=== PATIENT | female | born 1950 | race Caucasian/White ===

== ENCOUNTER 2023-05-03 14:15 | Outpatient (CLI) | payer OTHER | END 2023-05-03 14:16 | disposition home or self-care (01) | LOC: MADRAD 14:15 | PROVIDERS: ATTEND Surgery | DX: M47.26 Other spondylosis with radiculopathy, lumbar region (principal); Z98.890 Other specified postprocedural states | CPT/HCPCS: 72100 ==

== ENCOUNTER 2023-05-17 17:31 | Inpatient (IN) | payer MEDICARE, OTHER ==
[2023-05-17] MEDS ORDERED: Methocarbamol 500 MG TAB PO PRN (19:22)
[2023-05-17] MEDS ORDERED: Acetaminophen/Codeine 30-300mg Tablet PO PRN (19:22)
[2023-05-17] MEDS ORDERED: Acetaminophen 650 MG Suppository PR PRN (19:22)
[2023-05-17] MEDS ORDERED: Non-Formulary Item 1 EACH (Ertapenem 1 GM Vial) IVPB SCH (19:30)
[2023-05-17] MEDS ORDERED: Polyethylene Glycol 3350 17 GM Packet PO PRN (19:39)
[2023-05-17] MEDS ORDERED: Ondansetron ODT 4 MG TAB PO PRN (19:39)
[2023-05-17] MEDS: Nystatin Cream 15 GM TUBE TOP SCH (20:14)
[2023-05-17] MEDS: Dexamethasone 1 MG TAB PO SCH (20:15)
[2023-05-17] MEDS: Lisinopril 20 MG TAB PO SCH (20:15)
[2023-05-17] MEDS: Oxybutynin 5 MG TAB PO SCH (20:15)
[2023-05-17] MEDS: rOPINIRole HCl 0.25 MG TAB PO SCH (20:15)
[2023-05-17] MEDS: Meropenem 1 GM in Sodium Chloride 0.9% 100 ML IVPB SCH (21:37)
[2023-05-18] MEDS: Dexamethasone 1 MG TAB PO SCH ×4 (01:23→20:28)
[2023-05-18] MEDS: Meropenem 1 GM in Sodium Chloride 0.9% 100 ML IVPB SCH ×3 (05:29→22:17)
[2023-05-18] MEDS: Acetaminophen 325 MG TAB PO PRN (08:38)
[2023-05-18] MEDS: Enoxaparin 40 MG (0.4 mL) SYRINGE SC SCH (08:40)
[2023-05-18] MEDS: Nystatin Cream 15 GM TUBE TOP SCH ×2 (08:40→20:28)
[2023-05-18] MEDS: Lisinopril 20 MG TAB PO SCH ×2 (08:40→20:29)
[2023-05-18] MEDS: Isosorbide Mononitrate 30 MG ER.TAB PO SCH ×2 (08:40→09:15)
[2023-05-18] MEDS: Fluticasone Propionate Nasal Spray 16 gm Bottle NASAL SCH (08:48)
[2023-05-18] MEDS: rOPINIRole HCl 0.25 MG TAB PO SCH (20:28)
[2023-05-18] MEDS: Oxybutynin 5 MG TAB PO SCH (20:30)
[2023-05-19] MEDS: Acetaminophen 325 MG TAB PO PRN ×2 (01:35→09:33)
[2023-05-19] MEDS: Meropenem 1 GM in Sodium Chloride 0.9% 100 ML IVPB SCH ×3 (05:29→21:05)
[2023-05-19] MEDS: Isosorbide Mononitrate 30 MG ER.TAB PO SCH (08:55)
[2023-05-19] MEDS: Enoxaparin 40 MG (0.4 mL) SYRINGE SC SCH (08:55)
[2023-05-19] MEDS: Lisinopril 20 MG TAB PO SCH ×2 (08:55→20:28)
[2023-05-19] MEDS: Fluticasone Propionate Nasal Spray 16 gm Bottle NASAL SCH (08:58)
[2023-05-19] MEDS: Nystatin Cream 15 GM TUBE TOP SCH ×2 (08:58→20:26)
[2023-05-19] MEDS: Oxybutynin 5 MG TAB PO SCH (20:27)
[2023-05-19] MEDS: rOPINIRole HCl 0.25 MG TAB PO SCH (20:27)
[2023-05-19] MEDS ORDERED: ESOMEPRAZOLE 20 MG PO SCH (21:00)
[2023-05-20] MEDS: Acetaminophen 325 MG TAB PO PRN ×3 (00:52→15:10)
[2023-05-20] MEDS: Meropenem 1 GM in Sodium Chloride 0.9% 100 ML IVPB SCH ×3 (05:25→21:34)
[2023-05-20] MEDS: Fluticasone Propionate Nasal Spray 16 gm Bottle NASAL SCH (09:03)
[2023-05-20] MEDS: Nystatin Cream 15 GM TUBE TOP SCH ×2 (09:03→21:36)
[2023-05-20] MEDS: Enoxaparin 40 MG (0.4 mL) SYRINGE SC SCH (09:04)
[2023-05-20] MEDS: Lisinopril 20 MG TAB PO SCH ×2 (09:04→21:32)
[2023-05-20] MEDS: Isosorbide Mononitrate 30 MG ER.TAB PO SCH (09:04)
[2023-05-20] MEDS: ESOMEPRAZOLE 20 MG PO SCH (09:07)
[2023-05-20] MEDS: Acyclovir 200 mg Capsule PO SCH ×2 (11:00→21:31)
[2023-05-20] MEDS: Oxybutynin 5 MG TAB PO SCH (21:33)
[2023-05-20] MEDS: rOPINIRole HCl 0.25 MG TAB PO SCH ×2 (21:33→21:42)
[2023-05-21] MEDS: Meropenem 1 GM in Sodium Chloride 0.9% 100 ML IVPB SCH ×3 (05:32→21:33)
[2023-05-21] MEDS: Acyclovir 200 mg Capsule PO SCH ×3 (09:11→21:34)
[2023-05-21] MEDS: Lisinopril 20 MG TAB PO SCH ×2 (09:11→21:31)
[2023-05-21] MEDS: Isosorbide Mononitrate 30 MG ER.TAB PO SCH (09:12)
[2023-05-21] MEDS: Acetaminophen 325 MG TAB PO PRN (09:12)
[2023-05-21] MEDS: Fluticasone Propionate Nasal Spray 16 gm Bottle NASAL SCH (09:17)
[2023-05-21] MEDS: Nystatin Cream 15 GM TUBE TOP SCH ×2 (09:17→21:34)
[2023-05-21] MEDS: Enoxaparin 40 MG (0.4 mL) SYRINGE SC SCH (09:18)
[2023-05-21] MEDS: ESOMEPRAZOLE 20 MG PO SCH (09:18)
[2023-05-21] MEDS: Oxybutynin 5 MG TAB PO SCH (21:31)
[2023-05-21] MEDS: rOPINIRole HCl 0.25 MG TAB PO SCH (21:34)
[2023-05-22] MEDS: Meropenem 1 GM in Sodium Chloride 0.9% 100 ML IVPB SCH ×3 (05:33→21:04)
[2023-05-22 06:07] LABS: Anion Gap 10 mmol/L (10-20); BUN (Urea Nitrogen) 16 mg/dL (9.8-20.1); Calc. Creatinine Clearance 120 mL/min (70-130); Calcium 7.6 mg/dL (7.8-10.44); Carbon Dioxide 23 mmol/L (23-31); Chloride 101 mmol/L (98-107); Estimated GFR 94; Glucose 101 mg/dL (83-110); Potassium 3.8 mmol/L (3.5-5.1); Sodium 130 mmol/L (136-145)
[2023-05-22 06:10] LABS: Anisocytosis SLIGHT = 6-15 cells (100X) (0-5/hpf); Band 1 % (5-11); Eosinophils 4 % (0-10); Hematocrit 32.5 % (36.0-47.0); Hemoglobin 9.9 g/dL (12.0-16.0); Hypochromia SLIGHT = 6-15 cells (100X) (0-5/hpf); Lymphocytes 13 % (21-51); MDiff Complete? YES; Macrocytosis SLIGHT = 6-15 cells (100X) (0-5/hpf); Mean Corpuscular HGB CONC 30.5 g/dL (32.0-36.0); Mean Corpuscular Hemoglobin 25.9 pg (27.0-31.0); Mean Corpuscular Volume 84.9 fl (78.0-98.0); Mean Platelet Volume 7.6 fL (7.4-10.4); Monocytes 9 % (0-10); Neutrophil 73 % (42-75); Platelet Count 101 10x3/uL (130-400); Polychromasia SLIGHT = 2-3 cells (100X) (0-2/hpf); RBC Distribution Width 22.3 % (11.5-14.5); Red Blood Cell (RBC) Count 3.83 mill/uL (4.20-5.40); Target Cells SLIGHT = 2-5 cells (100X) (0-1/hpf); White Blood Cell (WBC) Count 9.5 10x3/uL (4.8-10.8)
[2023-05-22] MEDS: Acyclovir 200 mg Capsule PO SCH (08:51)
[2023-05-22] MEDS: Isosorbide Mononitrate 30 MG ER.TAB PO SCH (08:51)
[2023-05-22] MEDS: Docusate 100 MG CAP PO SCH (08:51)
[2023-05-22] MEDS: Lisinopril 20 MG TAB PO SCH ×2 (08:51→21:01)
[2023-05-22] MEDS: Enoxaparin 40 MG (0.4 mL) SYRINGE SC SCH (08:52)
[2023-05-22] MEDS: Nystatin Cream 15 GM TUBE TOP SCH ×2 (08:52→21:04)
[2023-05-22] MEDS: Fluticasone Propionate Nasal Spray 16 gm Bottle NASAL SCH (08:52)
[2023-05-22] MEDS: ESOMEPRAZOLE 20 MG PO SCH (08:53)
[2023-05-22] MEDS: Lantiseptic Ointment 130 GM JAR TOP PRN (17:42)
[2023-05-22] MEDS: Oxybutynin 5 MG TAB PO SCH (21:02)
[2023-05-22] MEDS: ACYCLOVIR 800 MG PO SCH (21:03)
[2023-05-22] MEDS: rOPINIRole HCl 0.25 MG TAB PO SCH (21:05)
[2023-05-23] MEDS: Meropenem 1 GM in Sodium Chloride 0.9% 100 ML IVPB SCH ×3 (05:29→21:00)
[2023-05-23] MEDS: Docusate 100 MG CAP PO SCH (09:16)
[2023-05-23] MEDS: Lisinopril 20 MG TAB PO SCH ×2 (09:16→20:53)
[2023-05-23] MEDS: Fluticasone Propionate Nasal Spray 16 gm Bottle NASAL SCH (09:16)
[2023-05-23] MEDS: Isosorbide Mononitrate 30 MG ER.TAB PO SCH (09:16)
[2023-05-23] MEDS: ACYCLOVIR 800 MG PO SCH ×2 (09:16→20:54)
[2023-05-23] MEDS: Enoxaparin 40 MG (0.4 mL) SYRINGE SC SCH (09:16)
[2023-05-23] MEDS: ESOMEPRAZOLE 20 MG PO SCH (09:17)
[2023-05-23] MEDS: Nystatin Cream 15 GM TUBE TOP SCH ×2 (09:20→20:53)
[2023-05-23] MEDS: Lantiseptic Ointment 130 GM JAR TOP PRN (09:20)
[2023-05-23] MEDS: Calcium Carbonate 500 MG TAB PO SCH (17:24)
[2023-05-23] MEDS: Oxybutynin 5 MG TAB PO SCH (20:53)
[2023-05-23] MEDS: rOPINIRole HCl 0.25 MG TAB PO SCH (20:54)
[2023-05-24] MEDS: Meropenem 1 GM in Sodium Chloride 0.9% 100 ML IVPB SCH ×2 (05:09→13:56)
[2023-05-24 06:11] LABS: ALT (SGPT) 92 U/L (8-55); AST (SGOT) 114 U/L (5-34); Albumin 2.4 g/dL (3.4-4.8); Alkaline Phosphatase 369 U/L (40-110); Anion Gap 11 mmol/L (10-20); BUN (Urea Nitrogen) 12 mg/dL (9.8-20.1); Bilirubin, Total 1.8 mg/dL (0.2-1.2); Calc. Creatinine Clearance 128 mL/min (70-130); Calcium 7.8 mg/dL (7.8-10.44); Carbon Dioxide 22 mmol/L (23-31); Chloride 102 mmol/L (98-107); Estimated GFR 95; Globulin 2.9 g/dL (2.4-3.5); Glucose 98 mg/dL (83-110); Potassium 3.7 mmol/L (3.5-5.1); Protein, Total 5.3 g/dL (5.8-8.1); Sodium 131 mmol/L (136-145)
[2023-05-24 06:36] LABS: Hematocrit 30.7 % (36.0-47.0); Hemoglobin 9.6 g/dL (12.0-16.0); Mean Corpuscular HGB CONC 31.5 g/dL (32.0-36.0); Mean Corpuscular Hemoglobin 26.7 pg (27.0-31.0); Mean Corpuscular Volume 84.8 fl (78.0-98.0); Mean Platelet Volume 7.8 fL (7.4-10.4); Platelet Count 97 10x3/uL (130-400); RBC Distribution Width 22.5 % (11.5-14.5); Red Blood Cell (RBC) Count 3.62 mill/uL (4.20-5.40); White Blood Cell (WBC) Count 7.1 10x3/uL (4.8-10.8)
[2023-05-24 06:50] LABS: Anisocytosis SLIGHT = 6-15 cells (100X) (0-5/hpf); Eosinophils 3 % (0-10); Lymphocytes 16 % (21-51); MDiff Complete? YES; Manual Diff?? YES; Monocytes 12 % (0-10); Neutrophil 69 % (42-75)
[2023-05-24 06:51] LABS: Platelet Adequacy Comment Appears Decreased
[2023-05-24] MEDS: Docusate 100 MG CAP PO SCH (08:31)
[2023-05-24] MEDS: Isosorbide Mononitrate 30 MG ER.TAB PO SCH (08:31)
[2023-05-24] MEDS: Calcium Carbonate 500 MG TAB PO SCH ×2 (08:31→16:56)
[2023-05-24] MEDS: Lisinopril 20 MG TAB PO SCH ×2 (08:31→20:31)
[2023-05-24] MEDS: Fluticasone Propionate Nasal Spray 16 gm Bottle NASAL SCH (08:32)
[2023-05-24] MEDS: Enoxaparin 40 MG (0.4 mL) SYRINGE SC SCH (08:32)
[2023-05-24] MEDS: ACYCLOVIR 800 MG PO SCH ×2 (08:34→20:30)
[2023-05-24] MEDS: ESOMEPRAZOLE 20 MG PO SCH (08:34)
[2023-05-24] MEDS: Nystatin Cream 15 GM TUBE TOP SCH ×2 (08:35→20:32)
[2023-05-24] MEDS: Oxybutynin 5 MG TAB PO SCH (20:32)
[2023-05-24] MEDS: rOPINIRole HCl 0.25 MG TAB PO SCH (20:32)
[2023-05-25] MEDS: Nystatin Cream 15 GM TUBE TOP SCH ×2 (09:00→20:09)
[2023-05-25] MEDS: Lisinopril 20 MG TAB PO SCH ×2 (09:14→20:09)
[2023-05-25] MEDS: Isosorbide Mononitrate 30 MG ER.TAB PO SCH (09:14)
[2023-05-25] MEDS: Calcium Carbonate 500 MG TAB PO SCH ×2 (09:14→18:13)
[2023-05-25] MEDS: Docusate 100 MG CAP PO SCH (09:14)
[2023-05-25] MEDS: ACYCLOVIR 800 MG PO SCH ×3 (09:15→20:16)
[2023-05-25] MEDS: ESOMEPRAZOLE 20 MG PO SCH (09:16)
[2023-05-25] MEDS: Fluticasone Propionate Nasal Spray 16 gm Bottle NASAL SCH (09:17)
[2023-05-25] MEDS: Enoxaparin 40 MG (0.4 mL) SYRINGE SC SCH (11:03)
[2023-05-25] MEDS: Oxybutynin 5 MG TAB PO SCH (20:09)
[2023-05-25] MEDS: rOPINIRole HCl 0.25 MG TAB PO SCH (20:09)
[2023-05-26] MEDS: Docusate 100 MG CAP PO SCH (08:38)
[2023-05-26] MEDS: Calcium Carbonate 500 MG TAB PO SCH (08:38)
[2023-05-26] MEDS: Fluticasone Propionate Nasal Spray 16 gm Bottle NASAL SCH (08:41)
[2023-05-26] MEDS: Lisinopril 20 MG TAB PO SCH ×2 (08:58→20:20)
[2023-05-26] MEDS: Isosorbide Mononitrate 30 MG ER.TAB PO SCH (08:58)
[2023-05-26] MEDS: ACYCLOVIR 800 MG PO SCH ×2 (09:00→20:21)
[2023-05-26] MEDS: Nystatin Cream 15 GM TUBE TOP SCH ×2 (09:00→20:22)
[2023-05-26] MEDS: ESOMEPRAZOLE 20 MG PO SCH (09:01)
[2023-05-26] MEDS: Enoxaparin 40 MG (0.4 mL) SYRINGE SC SCH (10:46)
[2023-05-26 17:17] LABS: Bilirubin Small (Negative); Blood, Urine Negative (Negative); Clarity Clear (Clear); Glucose, Urine (Dipstick) Negative (Negative); Ketone, Urine Trace mg/dL (Negative); Leukocyte Trace (Negative); Nitrite Negative (Negative); Protein, Urine (Dipstick) 30 mg/dL (Neg-Trace); pH, Urine 5.5 (5.0-9.0)
[2023-05-26 17:26] LABS: Bacteria/HPF Rare-Few HPF (None Seen); CAUTI Indications for Culture Dysuria,urgency,freq; Mucous/LPF 2+ LPF (<2+); RBC/HPF None Seen HPF (0-3); WBC/HPF 0-3 HPF (0-3); Yeast-Budding 2+ HPF (None Seen); Yeast-Hyphae 1+ HPF (None Seen)
[2023-05-26 17:27] LABS: Urine Culture Reflex No No
[2023-05-26] MEDS ORDERED: Fluconazole 100 MG TAB PO SCH (18:00)
[2023-05-26] MEDS: Oxybutynin 5 MG TAB PO SCH (20:20)
[2023-05-26] MEDS: rOPINIRole HCl 0.25 MG TAB PO SCH (20:21)
[2023-05-27 05:38] LABS: Hematocrit 28.8 % (36.0-47.0); Hemoglobin 8.9 g/dL (12.0-16.0); Platelet Count 85 10x3/uL (130-400)
[2023-05-27] MEDS: Fluticasone Propionate Nasal Spray 16 gm Bottle NASAL SCH (08:28)
[2023-05-27] MEDS: ESOMEPRAZOLE 20 MG PO SCH (08:29)
[2023-05-27] MEDS: Fluconazole 100 MG TAB PO SCH (08:30)
[2023-05-27] MEDS: Lisinopril 20 MG TAB PO SCH ×2 (08:31→20:31)
[2023-05-27] MEDS: Docusate 100 MG CAP PO SCH (08:31)
[2023-05-27] MEDS: Isosorbide Mononitrate 30 MG ER.TAB PO SCH (08:31)
[2023-05-27] MEDS: ACYCLOVIR 800 MG PO SCH ×2 (08:32→20:27)
[2023-05-27] MEDS: Nystatin Cream 15 GM TUBE TOP SCH ×2 (08:32→20:31)
[2023-05-27] MEDS: Lantiseptic Ointment 130 GM JAR TOP PRN (08:35)
[2023-05-27] MEDS: Enoxaparin 40 MG (0.4 mL) SYRINGE SC SCH (09:36)
[2023-05-27] MEDS: Oxybutynin 5 MG TAB PO SCH (20:27)
[2023-05-27] MEDS: rOPINIRole HCl 0.25 MG TAB PO SCH (20:33)
[2023-05-28] MEDS: ACYCLOVIR 800 MG PO SCH ×2 (09:08→20:20)
[2023-05-28] MEDS: Isosorbide Mononitrate 30 MG ER.TAB PO SCH (09:08)
[2023-05-28] MEDS: Fluticasone Propionate Nasal Spray 16 gm Bottle NASAL SCH (09:10)
[2023-05-28] MEDS: ESOMEPRAZOLE 20 MG PO SCH (09:10)
[2023-05-28] MEDS: Fluconazole 100 MG TAB PO SCH (09:11)
[2023-05-28] MEDS: Docusate 100 MG CAP PO SCH (09:11)
[2023-05-28] MEDS: Nystatin Cream 15 GM TUBE TOP SCH ×2 (09:12→20:25)
[2023-05-28] MEDS: Lantiseptic Ointment 130 GM JAR TOP PRN (09:12)
[2023-05-28] MEDS: Lisinopril 20 MG TAB PO SCH ×2 (09:14→20:25)
[2023-05-28] MEDS: GUAIFENESIN SF SOLN 200 MG/10 ML UDCUP PO PRN ×2 (09:20→20:20)
[2023-05-28] MEDS: Oxybutynin 5 MG TAB PO SCH (20:20)
[2023-05-28] MEDS: rOPINIRole HCl 0.25 MG TAB PO SCH (20:25)
[2023-05-29 06:07] LABS: Hematocrit 29.1 % (36.0-47.0); Hemoglobin 9.2 g/dL (12.0-16.0); Mean Corpuscular HGB CONC 31.7 g/dL (32.0-36.0); Mean Corpuscular Hemoglobin 26.9 pg (27.0-31.0); Mean Corpuscular Volume 84.8 fl (78.0-98.0); Platelet Count 87 10x3/uL (130-400); RBC Distribution Width 23.5 % (11.5-14.5); Red Blood Cell (RBC) Count 3.42 mill/uL (4.20-5.40); White Blood Cell (WBC) Count 5.8 10x3/uL (4.8-10.8)
[2023-05-29 06:18] LABS: Anion Gap 11 mmol/L (10-20); BUN (Urea Nitrogen) 12 mg/dL (9.8-20.1); Calc. Creatinine Clearance 114 mL/min (70-130); Calcium 7.9 mg/dL (7.8-10.44); Carbon Dioxide 22 mmol/L (23-31); Chloride 101 mmol/L (98-107); Estimated GFR 92; Glucose 92 mg/dL (83-110); Potassium 3.9 mmol/L (3.5-5.1); Sodium 130 mmol/L (136-145)
[2023-05-29] MEDS: ESOMEPRAZOLE 20 MG PO SCH (09:02)
[2023-05-29] MEDS: Docusate 100 MG CAP PO SCH (09:02)
[2023-05-29] MEDS: Isosorbide Mononitrate 30 MG ER.TAB PO SCH (09:03)
[2023-05-29] MEDS: ACYCLOVIR 800 MG PO SCH ×2 (09:03→20:18)
[2023-05-29] MEDS: Fluticasone Propionate Nasal Spray 16 gm Bottle NASAL SCH (09:03)
[2023-05-29] MEDS: Lisinopril 20 MG TAB PO SCH ×2 (09:03→20:14)
[2023-05-29] MEDS: Nystatin Cream 15 GM TUBE TOP SCH ×2 (09:05→20:15)
[2023-05-29] MEDS: Oxybutynin 5 MG TAB PO SCH (20:14)
[2023-05-29] MEDS: rOPINIRole HCl 0.25 MG TAB PO SCH ×2 (20:14→20:21)
[2023-05-30] MEDS ORDERED: Albuterol 200 PUFF (6.7GM INHALER) INH PRN (05:30)
[2023-05-30] MEDS: ESOMEPRAZOLE 20 MG PO SCH (08:21)
[2023-05-30] MEDS: ACYCLOVIR 800 MG PO SCH ×2 (08:21→20:13)
[2023-05-30] MEDS: Fluticasone Propionate Nasal Spray 16 gm Bottle NASAL SCH (08:21)
[2023-05-30] MEDS: Docusate 100 MG CAP PO SCH (08:23)
[2023-05-30] MEDS: Nystatin Cream 15 GM TUBE TOP SCH ×2 (08:23→20:16)
[2023-05-30] MEDS: Lantiseptic Ointment 130 GM JAR TOP PRN (08:23)
[2023-05-30] MEDS: Isosorbide Mononitrate 30 MG ER.TAB PO SCH (08:24)
[2023-05-30] MEDS: Lisinopril 20 MG TAB PO SCH ×2 (08:25→20:14)
[2023-05-30] MEDS: Nystatin 500,000 UNITS/5 ML UDCUP SSW SCH ×4 (08:31→20:20)
[2023-05-30] MEDS: Oxybutynin 5 MG TAB PO SCH (20:13)
[2023-05-30] MEDS: rOPINIRole HCl 0.25 MG TAB PO SCH ×2 (20:13→20:15)
[2023-05-31] MEDS: Docusate 100 MG CAP PO SCH (08:27)
[2023-05-31] MEDS: Nystatin 500,000 UNITS/5 ML UDCUP SSW SCH ×4 (08:27→20:52)
[2023-05-31] MEDS: Isosorbide Mononitrate 30 MG ER.TAB PO SCH (08:27)
[2023-05-31] MEDS: ACYCLOVIR 800 MG PO SCH ×2 (08:28→20:52)
[2023-05-31] MEDS: Fluticasone Propionate Nasal Spray 16 gm Bottle NASAL SCH (08:28)
[2023-05-31] MEDS: ESOMEPRAZOLE 20 MG PO SCH (08:28)
[2023-05-31] MEDS: Lantiseptic Ointment 130 GM JAR TOP PRN (08:33)
[2023-05-31] MEDS: Nystatin Cream 15 GM TUBE TOP SCH ×2 (08:33→20:54)
[2023-05-31 11:23] VITALS: BMI 38.7
[2023-05-31] MEDS: Lisinopril 20 MG TAB PO SCH ×2 (11:52→20:54)
[2023-05-31] MEDS ORDERED: Acetaminophen 325 MG TAB PO PRN (13:06)
[2023-05-31] MEDS: Triamcinolone Acetonide 200 MG, Emollient 15 oz bottle 450 ML TOP PRN (14:18)
[2023-05-31] MEDS: Oxybutynin 5 MG TAB PO SCH (20:52)
[2023-05-31] MEDS: rOPINIRole HCl 0.25 MG TAB PO SCH (20:54)
[2023-06-01] MEDS: Isosorbide Mononitrate 30 MG ER.TAB PO SCH (08:29)
[2023-06-01] MEDS: Fluticasone Propionate Nasal Spray 16 gm Bottle NASAL SCH (08:29)
[2023-06-01] MEDS: Nystatin 500,000 UNITS/5 ML UDCUP SSW SCH ×4 (08:29→20:19)
[2023-06-01] MEDS: Docusate 100 MG CAP PO SCH (08:29)
[2023-06-01] MEDS: ESOMEPRAZOLE 20 MG PO SCH (08:29)
[2023-06-01] MEDS: ACYCLOVIR 800 MG PO SCH ×2 (08:30→20:19)
[2023-06-01] MEDS: Nystatin Cream 15 GM TUBE TOP SCH ×2 (08:32→20:20)
[2023-06-01] MEDS: Triamcinolone Acetonide 200 MG, Emollient 15 oz bottle 450 ML TOP PRN (08:33)
[2023-06-01] MEDS: Lantiseptic Ointment 130 GM JAR TOP PRN (08:33)
[2023-06-01] MEDS: Lisinopril 20 MG TAB PO SCH ×2 (11:34→20:20)
[2023-06-01] MEDS ORDERED: Benzonatate 100 MG CAP PO PRN (19:07)
[2023-06-01] MEDS: Oxybutynin 5 MG TAB PO SCH (20:18)
[2023-06-01] MEDS: rOPINIRole HCl 0.25 MG TAB PO SCH (20:19)
[2023-06-02] MEDS: Docusate 100 MG CAP PO SCH (09:10)
[2023-06-02] MEDS: Isosorbide Mononitrate 30 MG ER.TAB PO SCH (09:10)
[2023-06-02] MEDS: Lisinopril 20 MG TAB PO SCH ×2 (09:12→20:21)
[2023-06-02] MEDS: Nystatin 500,000 UNITS/5 ML UDCUP SSW SCH ×4 (09:13→20:22)
[2023-06-02] MEDS: Nystatin Cream 15 GM TUBE TOP SCH ×2 (09:13→20:22)
[2023-06-02] MEDS: ACYCLOVIR 800 MG PO SCH ×2 (09:13→20:22)
[2023-06-02] MEDS: Fluticasone Propionate Nasal Spray 16 gm Bottle NASAL SCH (09:13)
[2023-06-02] MEDS: ESOMEPRAZOLE 20 MG PO SCH (09:19)
[2023-06-02 19:10] VITALS: TEMP 97.8
[2023-06-02] MEDS: rOPINIRole HCl 0.25 MG TAB PO SCH (20:21)
[2023-06-02] MEDS: Oxybutynin 5 MG TAB PO SCH (20:22)
[2023-06-03 07:30] VITALS: BP 129/71
[2023-06-03] MEDS: Docusate 100 MG CAP PO SCH (09:05)
[2023-06-03] MEDS: Isosorbide Mononitrate 30 MG ER.TAB PO SCH (09:05)
[2023-06-03] MEDS: ACYCLOVIR 800 MG PO SCH (09:05)
[2023-06-03] MEDS: Lisinopril 20 MG TAB PO SCH (09:05)
[2023-06-03] MEDS: Nystatin Cream 15 GM TUBE TOP SCH (09:06)
[2023-06-03] MEDS: Nystatin 500,000 UNITS/5 ML UDCUP SSW SCH ×2 (09:06→13:34)
[2023-06-03] MEDS: ESOMEPRAZOLE 20 MG PO SCH (09:06)
[2023-06-03] MEDS: Fluticasone Propionate Nasal Spray 16 gm Bottle NASAL SCH (09:06)
== END 2023-06-03 14:51 | disposition home or self-care (01) | DRG 920 ==
LOC: MADMS 18:46
PROVIDERS: ADMIT Family Medicine; ATTEND Family Medicine
DX: T81.30XA Disruption of wound, unspecified, initial encounter (principal); B37.0 Candidal stomatitis; E87.1 Hypo-osmolality and hyponatremia; N39.0 Urinary tract infection, site not specified; R53.81 Other malaise; M81.0 Age-related osteoporosis without current pathological fracture; I10 Essential (primary) hypertension; G47.33 Obstructive sleep apnea (adult) (pediatric); F41.9 Anxiety disorder, unspecified; F32.A Depression, unspecified; M48.061 Spinal stenosis, lumbar region without neurogenic claudication; Z91.040 Latex allergy status; Z79.899 Other long term (current) drug therapy; E66.9 Obesity, unspecified; Z68.38 Body mass index [BMI] 38.0-38.9, adult; S32.049D Unspecified fracture of fourth lumbar vertebra, subsequent encounter for fracture with routine healing; E83.51 Hypocalcemia; D69.6 Thrombocytopenia, unspecified; D64.9 Anemia, unspecified; R26.81 Unsteadiness on feet
CPT/HCPCS: 36415; 71045; 80048; 80053; 81001; 85014; 85018; 85025; 85027; 85049; J1650; J2185; J3490; J8540